=== PATIENT | female | born 1985 | race Caucasian/White ===

== ENCOUNTER 2024-08-04 04:55 | Emergency (ER) | payer SELFPAY ==
[~2024-08-04] VITALS: Ht 160 cm; Wt 61.0 kg
[2024-08-04 04:59] VITALS: O2SAT 98
[2024-08-04] MEDS: LIDOCAINE HCL/PF 1% 10 MG/ML 5ML VIAL INFIL ONE ×2 (06:00→12:13)
[2024-08-04] MEDS: TETANUS, DIPHTHERIA, PERTUSSIS VAC/PF 0.5ML (>10YR OLD) IM ONE (06:03)
[2024-08-04] MEDS: ACETAMINOPHEN 1000MG/100ML 100 ML IV ONE (06:50)
[2024-08-04 07:09] LABS: HEMATOCRIT. 39.2 % (36.0-48.0); HEMOGLOBIN. 13.1 g/dL (12.0-16.0); MEAN CORPUSCULAR HEMOGLOBIN 30.9 pg (28.0-32.0); MEAN CORPUSCULAR HGB CONC 33.5 g/dL (31.0-37.0); MEAN CORPUSCULAR VOLUME 92.5 fL (81.0-99.0); MEAN PLATELET VOLUME 8.5 fl (7.4-10.4); PLATELET 291 x1000/uL (130-400); RED BLOOD CELL COUNT 4.24 mill/uL (4.2-5.4); RED CELL DISTRIBUTION WIDTH 13.2 % (11.6-14.6); WHITE BLOOD COUNT 21.9 x1000/uL (4.5-11.0)
[2024-08-04 07:14] LABS: DIFFERENTIAL COMMENT 1
[2024-08-04 07:18] LABS: CARBON DIOXIDE 24 mEq/L (21-32); CHLORIDE 108 mEq/L (98-107); POTASSIUM 3.9 mEq/L (3.5-5.1); SODIUM 139 mEq/L (136-145)
[2024-08-04 07:19] LABS: CALCIUM 8.8 mg/dL (8.7-10.4)
[2024-08-04 07:22] LABS: HCG SCREEN NEGATIVE
[2024-08-04 07:24] LABS: CREATININE 0.6 mg/dL (0.6-1.0); GLUCOSE 111 mg/dL (70-105); UREA NITROGEN BLOOD 14 mg/dL (9-23)
[2024-08-04 08:07] LABS: PLATELET ESTIMATE NORMAL
[2024-08-04 12:43] LABS: HIV 1/2 AB P24AG Negative (Negative)
[2024-08-04] MEDS: METOCLOPRAMIDE HCL 10MG/2ML VIAL IV ONE (12:49)
[2024-08-04] MEDS: KETOROLAC 30MG/ML VIAL IV ONE (12:49)
[2024-08-04 14:52] VITALS: BP 116/70; PULSE 70; RESP 18; TEMP 37.00296; O2SAT 100
[2024-08-04 17:05] LABS: HEPATITIS B SURFACE ANTIGEN NEGATIVE
== END 2024-08-04 16:06 | disposition short-term general hospital (02) ==
LOC: ER 04:55
DX: S71.112A Laceration without foreign body, left thigh, initial encounter (principal); S01.112A Laceration without foreign body of left eyelid and periocular area, initial encounter; S01.312A Laceration without foreign body of left ear, initial encounter; Z65.3 Problems related to other legal circumstances; Y08.89XA Assault by other specified means, initial encounter; Y93.89 Activity, other specified; Y92.89 Other specified places as the place of occurrence of the external cause; Y99.8 Other external cause status
CPT/HCPCS: 99285; 12006; 70450; 96365; 96375; 80048; 84703; 85025; 36415; 73090; 70486; 12013; J1885; J3490; J2765; 90715; J0131